=== PATIENT | male | born 1960 | race Native Hawaiian/Other Pacific Islander ===

== ENCOUNTER 2020-06-29 09:00 | Outpatient (CLI) | payer BC, OTHER | END 2020-06-29 19:37 | disposition home or self-care (01) | LOC: INF 09:00 | PROVIDERS: ATTEND Internal Medicine | DX: Z23 Encounter for immunization (principal) | CPT/HCPCS: 96372 ==

== ENCOUNTER 2020-07-19 14:31 | Outpatient (CLI) | payer BC, OTHER | END 2020-07-19 21:31 | disposition home or self-care (01) | LOC: INF 14:31 | PROVIDERS: ATTEND Internal Medicine | DX: Z23 Encounter for immunization (principal) | CPT/HCPCS: 96372 ==